=== PATIENT | female | born 1965 | race Two or more races ===

== ENCOUNTER 2021-02-04 17:13 | Inpatient (IN) | payer OTHER, MEDICAID ==
[~2021-02-04] VITALS: Ht 160 cm; Wt 115.0 kg
[~2021-02-04 17:13] MED LIST: ARIP1TAB7 PO; ASPI325T25 PO; ATOR20TA50 PO; BISA-65 PO; CARV3.1240 PO; CHOL20009 PO; CLON0.5T3 PO; FERR-20 PO; FURO40TA4 PO; GLIP-110 PO; INSREG3 SC; INSUINJ2 SC; LEVO50TA7 PO; LOSA25TA38 PO; MEDR10TA9 PO; OMEG300C7 PO; RANI-226 PO; SPIR25TA8 PO; TRAM50TA2 PO; [UNRECOGNIZED DRUG - CODE] PO
[2021-02-04 18:18] LABS: Basophils # (auto) 0.1 10 ^3/uL (0-0.2); Eosinophils # (auto) 0.2 10 ^3/uL (0-0.8); Hemoglobin 15.4 g/dL (12.2-16.2); Monocytes # (auto) 0.4 10 ^3/uL (0-1.3); Neutrophils # (auto) 5.9 10 ^3/uL (1.6-8.6)
[2021-02-04 18:22] LABS: Basophils % (auto) 0.9 % (0.0-2.0); Eosinophils % (auto) 2.3 % (0.0-7.0); Hematocrit 46.7 % (36.0-46.0); Lymphocytes # (auto) 2.1 10 ^3/uL (0.4-5.4); Lymphocytes % (auto) 24.4 % (10.0-50.0); Mean Corpuscular Hemoglobin 27.2 pg (28.0-32.0); Mean Corpuscular Hgb Conc. 32.9 g/dL (32.0-36.0); Mean Corpuscular Volume 82.7 fL (80.0-100.0); Monocytes % (auto) 4.6 % (0.0-12.0); Neutrophils % (auto) 67.8 % (37.0-80.0); Red Blood Cells 5.65 10^6/uL (4.0-5.20); White Blood Cell 8.6 10^3/uL (4.4-10.8)
[2021-02-04 18:25] LABS: Red Cell Distribution Width 22.5 % (11.8-14.3)
[2021-02-04 18:26] LABS: Albumin 2.7 g/dL (3.4-5.0); Calcium 9.3 mg/dL (8.5-10.1)
[2021-02-04 18:30] LABS: BUN/Creatinine Ratio 19.4; Bilirubin, Total 0.2 mg/dL (0.2-1.0); Total Protein 7.8 g/dL (6.4-8.2)
[2021-02-04 18:40] LABS: Potassium 7.2 mmol/L (3.5-5.1)
[2021-02-04] MEDS ORDERED: DEXTROSE (50%) 50ML SYRG IV ONE (19:00)
[2021-02-04] MEDS: DEXTROSE (50%) 50ML SYRG IV ONE ×2 (19:40→21:13)
[2021-02-04] MEDS ORDERED: InsuLIN REG 1unit/0.01ml Soln (100units/ml) IV ONE (20:00)
[2021-02-04] MEDS ORDERED: SODIUM BICARBONATE 8.4% INJ 50ML SYRINGE IV ONE (20:00)
[2021-02-04] MEDS ORDERED: DEXTROSE (25%) 10 ML SYRG IV ONE (20:00)
[2021-02-04] MEDS ORDERED: MORPHINE SULFATE INJECTION 2 MG/ML SYRG IV PRN (21:30)
[2021-02-04] MEDS ORDERED: ONDANSETRON HCL 4 MG/2 ML VIAL IV PRN (21:30)
[2021-02-04] MEDS ORDERED: DEXTROSE (50%) 50ML SYRG IV PRN (21:30)
[2021-02-04] MEDS ORDERED: ACETAMINOPHEN 325 MG TAB PO PRN (21:30)
[2021-02-04] MEDS ORDERED: TEMAZEPAM 15 MG CAP PO PRN (21:30)
[2021-02-04] MEDS ORDERED: NITROGLYCERIN 0.4 MG SL TAB SL PRN (21:30)
[2021-02-04] MEDS ORDERED: SODIUM ZIRCONIUM CYCL 10 GM PAK PO ONE (21:30)
[2021-02-04] MEDS ORDERED: ALBUTEROL SULF 2.5 MG/0.5ML(0.5%) NEB SOLN NEB ONE (21:30)
[2021-02-04] MEDS ORDERED: ACCU-CHEK COMFORT CURVE STRIP VI SCH (22:00)
[2021-02-04] MEDS ORDERED: InsuLIN REG 1unit/0.01ml Soln (100units/ml) SC SCH (22:00)
[2021-02-04] MEDS: ATORVASTATIN 20 MG TAB PO SCH (22:06)
[2021-02-04 23:00] VITALS: BP 166/79
[2021-02-05] VITALS (14 sets, daily range): BP systolic 88–143; BP diastolic 46–81
[2021-02-05] MEDS ORDERED: DEXTROSE (50%) 50ML SYRG IV ONE (02:15)
[2021-02-05] MEDS ORDERED: SODIUM ZIRCONIUM CYCL 10 GM PAK PO ONE (02:15)
[2021-02-05] MEDS ORDERED: CALCIUM GLUC 1,000mg/50ml-NS 50 ML IV ONE (02:15)
[2021-02-05] MEDS ORDERED: SODIUM BICARBONATE 8.4 % INJ 50ML VIAL IV ONE (02:15)
[2021-02-05] MEDS ORDERED: InsuLIN REG 1unit/0.01ml Soln (100units/ml) IV ONE ×2 (02:15→15:30)
[2021-02-05] MEDS ORDERED: DEXTROSE (50%) 50ML SYRG IV PRN ×3 (03:00→15:30)
[2021-02-05 03:35] LABS: Basophils # (auto) 0.1 10 ^3/uL (0-0.2); Eosinophils # (auto) 0.3 10 ^3/uL (0-0.8); Eosinophils % (auto) 3.4 % (0.0-7.0); Lymphocytes # (auto) 2.7 10 ^3/uL (0.4-5.4); Monocytes # (auto) 0.5 10 ^3/uL (0-1.3); Nucleated Red Blood Cells % 0.1 %
[2021-02-05 03:36] LABS: Basophils % (auto) 1.4 % (0.0-2.0); Hematocrit 43.7 % (36.0-46.0); Hemoglobin 14.5 g/dL (12.2-16.2); Lymphocytes % (auto) 32.8 % (10.0-50.0); Mean Corpuscular Hemoglobin 27.3 pg (28.0-32.0); Mean Corpuscular Hgb Conc. 33.1 g/dL (32.0-36.0); Mean Corpuscular Volume 82.5 fL (80.0-100.0); Neutrophils # (auto) 4.7 10 ^3/uL (1.6-8.6); Neutrophils % (auto) 56.4 % (37.0-80.0); White Blood Cell 8.4 10^3/uL (4.4-10.8)
[2021-02-05 03:45] LABS: Red Cell Distribution Width 22.4 % (11.8-14.3)
[2021-02-05 03:52] LABS: BUN/Creatinine Ratio 19.5; Calcium 8.7 mg/dL (8.5-10.1)
[2021-02-05 03:57] LABS: Potassium 6.6 mmol/L (3.5-5.1)
[2021-02-05] MEDS: InsuLIN REG 1unit/0.01ml Soln (100units/ml) SC SCH ×5 (04:00→23:54)
[2021-02-05] MEDS: ACCU-CHEK COMFORT CURVE STRIP VI SCH ×5 (04:03→23:54)
[2021-02-05 05:15] LABS: Urine Bacteria NONE SEEN /hpf (None Seen); Urine Blood TRACE /uL (Negative); Urine Specific Gravity 1.012 (1.001-1.035); Urine WBC 18 /hpf (0 - 5)
[2021-02-05] MEDS ORDERED: FUROSEMIDE 40 MG TAB PO SCH (06:00)
[2021-02-05] MEDS: LEVOTHYROXINE SODIUM 50 MCG TAB PO SCH (06:50)
[2021-02-05] MEDS ORDERED: SODIUM BICARBONATE 650 MG TAB PO ONE (09:15)
[2021-02-05] MEDS ORDERED: ALBUMIN 5% 250 ML IV ONE (09:15)
[2021-02-05] MEDS ORDERED: FUROSEMIDE 40 MG/4 ML VIAL IV ONE (09:15)
[2021-02-05] MEDS ORDERED: SPIR100T4 PO (09:18)
[2021-02-05] MEDS ORDERED: LISI40TA11 PO (09:18)
[2021-02-05] MEDS ORDERED: CLON0.1T PO (09:18)
[2021-02-05] MEDS ORDERED: GLIP10TA9 PO (09:18)
[2021-02-05] MEDS ORDERED: SODIUM BICARBONATE 8.4% INJ 50ML SYRINGE IV ONE (09:30)
[2021-02-05] MEDS ORDERED: ALBUTEROL SULF 2.5 MG/0.5ML(0.5%) NEB SOLN NEB ONE ×2 (09:30→15:30)
[2021-02-05] MEDS: SODIUM ZIRCONIUM CYCL 10 GM PAK PO SCH ×3 (09:51→21:17)
[2021-02-05] MEDS: PANTOPRAZOLE 40 MG TAB PO SCH (09:51)
[2021-02-05] MEDS ORDERED: ASPirin 81 mg TAB PO SCH (10:00)
[2021-02-05] MEDS ORDERED: SODIUM CHLORIDE 0.9% 1,000 ML IV ONE (12:15)
[2021-02-05 12:44] LABS: Protein, Urine 380.3 mg/dL (0.0-11.9)
[2021-02-05 14:52] LABS: BUN/Creatinine Ratio 18.3; Calcium 8.6 mg/dL (8.5-10.1)
[2021-02-05 15:00] LABS: Potassium 6.1 mmol/L (3.5-5.1)
[2021-02-05] MEDS: SODIUM BICARBONATE 650 MG TAB PO SCH ×2 (15:13→21:15)
[2021-02-05] MEDS: cloNIDine HCL 0.1 MG TAB PO SCH ×2 (15:13→21:16)
[2021-02-05] MEDS ORDERED: InsuLIN REG 1unit/0.01ml Soln (100units/ml) SC SCH (17:00)
[2021-02-05] MEDS ORDERED: ACCU-CHEK COMFORT CURVE STRIP VI SCH (17:00)
[2021-02-05] MEDS ORDERED: clonazePAM 0.5 MG TAB PO PRN (17:45)
[2021-02-05] MEDS ORDERED: FUROSEMIDE 40 MG/4 ML VIAL IV SCH (18:00)
[2021-02-05 19:22] LABS: BUN/Creatinine Ratio 19.1; Calcium 8.6 mg/dL (8.5-10.1); Potassium 5.2 mmol/L (3.5-5.1)
[2021-02-05] MEDS: clonazePAM 0.5 MG TAB PO SCH (20:00)
[2021-02-05] MEDS: ATORVASTATIN 20 MG TAB PO SCH (21:17)
[2021-02-05] MEDS: CARVEDILOL 3.125 MG TAB PO SCH (21:17)
[2021-02-05] MEDS: SODIUM CHLORIDE 0.9% 1,000 ML IV SCH (21:19)
[2021-02-06] VITALS (11 sets, daily range): BP systolic 107–160; BP diastolic 57–99
[2021-02-06] MEDS: SODIUM BICARBONATE 650 MG TAB PO SCH ×2 (05:25→15:42)
[2021-02-06] MEDS: clonazePAM 0.5 MG TAB PO SCH (05:26)
[2021-02-06] MEDS: cloNIDine HCL 0.1 MG TAB PO SCH ×2 (05:26→14:00)
[2021-02-06] MEDS: SODIUM ZIRCONIUM CYCL 10 GM PAK PO SCH ×2 (05:26→15:42)
[2021-02-06] MEDS: ACCU-CHEK COMFORT CURVE STRIP VI SCH ×2 (05:26→12:08)
[2021-02-06] MEDS: InsuLIN REG 1unit/0.01ml Soln (100units/ml) SC SCH ×2 (05:28→12:09)
[2021-02-06] MEDS: LEVOTHYROXINE SODIUM 50 MCG TAB PO SCH (06:31)
[2021-02-06 07:42] LABS: BUN/Creatinine Ratio 19.9; Calcium 8.3 mg/dL (8.5-10.1)
[2021-02-06] MEDS ORDERED: ASPirin-EC 81 mg tab PO SCH (10:00)
[2021-02-06] MEDS: CARVEDILOL 3.125 MG TAB PO SCH (10:52)
[2021-02-06] MEDS: PANTOPRAZOLE 40 MG TAB PO SCH (10:53)
[2021-02-06] MEDS: SODIUM CHLORIDE 0.9% 1,000 ML IV SCH (11:00)
[2021-02-06] MEDS ORDERED: AMLO-496 PO (11:22)
[2021-02-06] MEDS ORDERED: cloNIDine HCL 0.1 MG TAB PO ONE (12:30)
[2021-02-06] MEDS ORDERED: amLODIPine BESYLATE 5 MG TAB PO ONE (13:30)
== END 2021-02-06 18:10 | disposition home or self-care (01) | DRG 682 ==
LOC: ER 17:13 → TELE 21:16 → DOU IN ICU 23:52 → TELE-CENTR 02-06 08:08
PROVIDERS: ADMIT Nurse Practitioner; ATTEND Internal Medicine
DX: N17.9 Acute kidney failure, unspecified (principal); E43 Unspecified severe protein-calorie malnutrition; E24.9 Cushing's syndrome, unspecified; Z68.41 Body mass index [BMI] 40.0-44.9, adult; E87.5 Hyperkalemia; Z20.822 Contact with and (suspected) exposure to COVID-19; E66.01 Morbid (severe) obesity due to excess calories; E11.22 Type 2 diabetes mellitus with diabetic chronic kidney disease; Z79.899 Other long term (current) drug therapy; Z79.891 Long term (current) use of opiate analgesic; Z79.4 Long term (current) use of insulin; Z79.01 Long term (current) use of anticoagulants; Z83.3 Family history of diabetes mellitus; N18.4 Chronic kidney disease, stage 4 (severe); I12.9 Hypertensive chronic kidney disease with stage 1 through stage 4 chronic kidney disease, or unspecified chronic kidney disease
CPT/HCPCS: 36415; 71045; 76775; 80048; 80053; 81001; 82570; 82962; 83036; 84132; 84156; 84484; 85025; 87081; 87086; 87426; 93005; 94640; 94644; 96365; 96375; G0378; J1815

== ENCOUNTER 2021-03-24 16:18 | Emergency (ER) | payer OTHER, MEDICAID ==
[~2021-03-24] VITALS: Ht 160 cm; Wt 118.8 kg
[~2021-03-24 16:18] MED LIST changes: +BISA-4 PO; -BISA-65 PO; +CLON0.1T PO; -FURO40TA4 PO; +GLIP10TA9 PO; -LOSA25TA38 PO; -MEDR10TA9 PO; -SPIR25TA8 PO
[2021-03-24 17:10] LABS: Urine Bacteria MOD /hpf (None Seen); Urine Blood Negative /uL (Negative); Urine Specific Gravity 1.017 (1.001-1.035); Urine WBC 3 /hpf (0 - 5)
[2021-03-24 18:00] LABS: Basophils # (auto) 0.1 10 ^3/uL (0-0.2); Basophils % (auto) 0.7 % (0.0-2.0); Eosinophils # (auto) 0.2 10 ^3/uL (0-0.8); Eosinophils % (auto) 2.6 % (0.0-7.0); Hematocrit 42.2 % (36.0-46.0); Hemoglobin 14.7 g/dL (12.2-16.2); Lymphocytes % (auto) 22.4 % (10.0-50.0); Mean Corpuscular Hemoglobin 30.1 pg (28.0-32.0); Mean Corpuscular Hgb Conc. 34.7 g/dL (32.0-36.0); Mean Corpuscular Volume 86.7 fL (80.0-100.0); Monocytes # (auto) 0.4 10 ^3/uL (0-1.3); Neutrophils % (auto) 69.3 % (37.0-80.0); Platelet Count (auto) 349 10^3/uL (140-450); Red Blood Cells 4.87 10^6/uL (4.0-5.20); Red Cell Distribution Width 17.9 % (11.8-14.3); White Blood Cell 8.7 10^3/uL (4.4-10.8)
[2021-03-24 18:04] LABS: Albumin 2.6 g/dL (3.4-5.0); BUN/Creatinine Ratio 10.1; Calcium 7.9 mg/dL (8.5-10.1)
[2021-03-24 18:06] LABS: Bilirubin, Total 0.2 mg/dL (0.2-1.0); Total Protein 7.1 g/dL (6.4-8.2)
[2021-03-24 19:32] VITALS: BP 140/67
== END 2021-03-24 19:40 | disposition home or self-care (01) ==
LOC: ER 16:18
DX: R51.9 Headache, unspecified (principal); R20.0 Anesthesia of skin; R53.1 Weakness; I12.9 Hypertensive chronic kidney disease with stage 1 through stage 4 chronic kidney disease, or unspecified chronic kidney disease; E11.22 Type 2 diabetes mellitus with diabetic chronic kidney disease; N18.4 Chronic kidney disease, stage 4 (severe); E78.5 Hyperlipidemia, unspecified
CPT/HCPCS: 36415; 70450; 80053; 81001; 85025; 93005

== ENCOUNTER 2021-06-20 14:36 | Emergency (ER) | payer OTHER, MEDICAID ==
[~2021-06-20] VITALS: Ht 160 cm; Wt 117.9 kg
[~2021-06-20 14:36] MED LIST changes: -BISA-4 PO; +BISA-65 PO
[2021-06-20 15:28] VITALS: BP 130/86
== END 2021-06-20 16:05 | disposition home or self-care (01) ==
LOC: ER 14:39
DX: T81.598A Other complications of foreign body accidentally left in body following other procedure, initial encounter (principal); E11.9 Type 2 diabetes mellitus without complications; E78.5 Hyperlipidemia, unspecified; Z79.4 Long term (current) use of insulin; Z79.82 Long term (current) use of aspirin; Z79.899 Other long term (current) drug therapy; Z98.890 Other specified postprocedural states; Z45.2 Encounter for adjustment and management of vascular access device
CPT/HCPCS: 36556

== ENCOUNTER 2022-03-20 16:22 | Emergency (ER) | payer OTHER, MEDICAID ==
[~2022-03-20] VITALS: Ht 160 cm; Wt 124.3 kg
[2022-03-20 19:30] VITALS: BP 143/80
== END 2022-03-20 19:49 | disposition home or self-care (01) ==
LOC: EDUNIT# 16:22 → ER 16:22
DX: M54.9 Dorsalgia, unspecified (principal); R06.02 Shortness of breath; I12.9 Hypertensive chronic kidney disease with stage 1 through stage 4 chronic kidney disease, or unspecified chronic kidney disease; E11.22 Type 2 diabetes mellitus with diabetic chronic kidney disease; N18.9 Chronic kidney disease, unspecified; E78.5 Hyperlipidemia, unspecified; E03.9 Hypothyroidism, unspecified